=== PATIENT | male | born 2000 | race Caucasian/White ===

== ENCOUNTER 2023-03-21 20:53 | Emergency (ER) | payer OTHER ==
[~2023-03-21] VITALS: Ht 177.8 cm; Wt 90.7 kg
[~2023-03-21 20:53] MED LIST: Amoxicillin500 MG PO; IBUP400 PO; METPHE10 PO; TENEX1 MG PO
[2023-03-21 21:03] VITALS: BP 150/86
== END 2023-03-21 21:13 | disposition home or self-care (01) ==
LOC: ER 20:53
DX: S20.421A Blister (nonthermal) of right back wall of thorax, initial encounter (principal); X58.XXXA Exposure to other specified factors, initial encounter
CPT/HCPCS: 99283